=== PATIENT | female | born 1975 | race Caucasian/White ===

== ENCOUNTER 2021-06-23 18:10 | Outpatient (CLI) | payer MEDICAID ==
[~2021-06-23] VITALS: Ht 157.5 cm; Wt 59.6 kg
[2021-06-23 20:30] VITALS: BP 113/79
[2021-06-23 21:16] LABS: GLUCOMETER DEV NAME(LOC) POC.BV
[2021-06-23 22:53] VITALS: BP 113/79
[2021-06-24 08:08] VITALS: BP 94/62
== END 2021-06-24 12:25 ==
LOC: CSU 18:10
PROVIDERS: ATTEND Psychiatry & Neurology Psychiatry
DX: F43.22 Adjustment disorder with anxiety (principal)
CPT/HCPCS: 90792